=== PATIENT | female | born 1945 | race Caucasian/White ===

== ENCOUNTER 2017-07-14 10:35 | Inpatient (IN) | payer OTHER ==
[~2017-07-14] VITALS: Ht 154.9 cm; Wt 41.9 kg
[2017-07-14 12:11] LABS: BASOPHIL (%) 0.3 % (0-1); BASOPHIL COUNT 0.1 K/uL (0-0.1); EOSINOPHIL (%) 0 % (0-5); HEMATOCRIT 29.9 % (36.0-46.0); HEMOGLOBIN 9.9 G/DL (11.9-15.5); IMMATURE GRANULOCYTE (%) 2.4 % (0.0-0.7); LYMPHOCYTE (%) 4.9 % (15-42); LYMPHOCYTE COUNT 1.1 K/uL (1.0-2.8); MCH 26.9 PG (29.0-34.0); MCHC 33.1 G/DL (30.0-36.0); MCV 81.3 FL (83-99); MONOCYTE (%) 7.2 % (3-12); MONOCYTE COUNT 1.7 K/uL (0-0.8); NEUTROPHIL (%) 85.2 % (45-76); NEUTROPHIL COUNT 19.7 K/uL (1.8-6.4); PLATELET COUNT 446 K/uL (156-360); RBC DIS.WIDTH-CV 17.7 % (11.8-14.6); RBC DIS.WIDTH-SD 52.7 % (39-53); RED BLOOD COUNT 3.68 M/uL (3.80-5.20); WHITE BLOOD COUNT 23.1 K/uL (4.1-10.2)
[2017-07-14 12:19] LABS: ALBUMIN 3.1 g/dL (3.2-4.8); CHLORIDE 94 mEq/L (99-109); POTASSIUM 4.1 mEq/L (3.7-5.4); SODIUM 131 mEq/L (136-147)
[2017-07-14 12:21] LABS: GLUCOSE 123 mg/dL (70-99); TOTAL PROTEIN 6.2 g/dL (6.4-8.3)
[2017-07-14 12:23] LABS: TOTAL BILIRUBIN 0.5 mg/dL (0.0-1.0)
[2017-07-14 12:25] LABS: ALKALINE PHOSPHATASE 218 IU/L (3-129); CREATININE 0.7 mg/dL (0.6-1.3); GFR ESTIMATE (CALCULATED) > 59 mL/min/
[2017-07-14 12:26] LABS: UREA NITROGEN (BUN) 21 mg/dL (9-23)
[2017-07-14 12:27] LABS: AST (GOT) 18 IU/L (2-34)
[2017-07-14 12:28] LABS: ALT (GPT) 12 IU/L (3-49)
[2017-07-14 12:30] LABS: TROP-I INTERPRETATION NEGATIVE; TROPONIN-I 0.05 ng/mL (0.0-0.30)
[2017-07-14] MEDS ORDERED: BIAXIN500 MG PO (12:32)
[2017-07-14] MEDS ORDERED: HYDROCODON-ACE1 EAC9 PO (12:33)
[2017-07-14] MEDS ORDERED: GUAIFENESIN AC473 ML PO (12:33)
[2017-07-14 15:31] VITALS: BP 122/54
[2017-07-14 19:55] VITALS: BP 165/74
[2017-07-15 00:14] VITALS: BP 144/67
[2017-07-15 03:34] VITALS: BP 162/73
[2017-07-15 08:31] VITALS: BP 150/78
[2017-07-15 09:56] LABS: HEMATOCRIT 31.1 % (36.0-46.0); MCHC 32.2 G/DL (30.0-36.0); PLATELET COUNT 559 K/uL (156-360); RBC DIS.WIDTH-CV 18.1 % (11.8-14.6); RBC DIS.WIDTH-SD 52.8 % (39-53); RED BLOOD COUNT 3.84 M/uL (3.80-5.20); WHITE BLOOD COUNT 16.7 K/uL (4.1-10.2)
[2017-07-15 10:33] LABS: CHLORIDE 96 MEQ/L (99-109); CREATININE 0.4 MG/DL (0.6-1.3); GFR ESTIMATE (CALCULATED) > 59 mL/min/; GLUCOSE 142 mg/dL (70-99); POTASSIUM 4.5 MEQ/L (3.7-5.4); SODIUM 137 MEQ/L (136-147); UREA NITROGEN (BUN) 15 mg/dL (9-23)
[2017-07-15 12:15] VITALS: BP 158/72
[2017-07-15 16:54] VITALS: BP 129/58
[2017-07-15 20:57] VITALS: BP 170/74
[2017-07-16] VITALS (7 sets, daily range): BP systolic 117–159; BP diastolic 58–78
[2017-07-16 06:36] LABS: HEMATOCRIT 27.3 % (36.0-46.0); MCH 26.5 PG (29.0-34.0); MCV 80.5 FL (83-99); PLATELET COUNT 538 K/uL (156-360); RBC DIS.WIDTH-CV 17.8 % (11.8-14.6); RBC DIS.WIDTH-SD 52.1 % (39-53); RED BLOOD COUNT 3.39 M/uL (3.80-5.20); WHITE BLOOD COUNT 15.8 K/uL (4.1-10.2)
[2017-07-16 06:42] LABS: CHLORIDE 95 MEQ/L (99-109); CREATININE 0.4 MG/DL (0.6-1.3); GFR ESTIMATE (CALCULATED) > 59 mL/min/; GLUCOSE 150 mg/dL (70-99); POTASSIUM 4.1 MEQ/L (3.7-5.4); SODIUM 131 MEQ/L (136-147); UREA NITROGEN (BUN) 18 mg/dL (9-23)
[2017-07-17 07:32] LABS: HEMATOCRIT 29.2 % (36.0-46.0); HEMOGLOBIN 9.6 G/DL (11.9-15.5); MCH 26.5 PG (29.0-34.0); MCHC 32.9 G/DL (30.0-36.0); MCV 80.7 FL (83-99); PLATELET COUNT 631 K/uL (156-360); RBC DIS.WIDTH-CV 17.7 % (11.8-14.6); RBC DIS.WIDTH-SD 51.4 % (39-53); RED BLOOD COUNT 3.62 M/uL (3.80-5.20); WHITE BLOOD COUNT 13.7 K/uL (4.1-10.2)
[2017-07-17 08:09] VITALS: BP 142/60
[2017-07-17 11:38] VITALS: BP 142/66
[2017-07-17 15:55] VITALS: BP 152/64
[2017-07-17 20:24] VITALS: BP 140/70
[2017-07-18 00:43] VITALS: BP 151/87
[2017-07-18 04:07] VITALS: BP 153/72
[2017-07-18 07:24] VITALS: BP 183/84
[2017-07-18 09:54] LABS: HEMATOCRIT 32.2 % (36.0-46.0); HEMOGLOBIN 10.2 G/DL (11.9-15.5); MCH 25.8 PG (29.0-34.0); MCHC 31.7 G/DL (30.0-36.0); MCV 81.3 FL (83-99); NRBC (%) 0.1 /100 WBC (0-0); PLATELET COUNT 724 K/uL (156-360); RBC DIS.WIDTH-CV 17.9 % (11.8-14.6); RBC DIS.WIDTH-SD 52.1 % (39-53); RED BLOOD COUNT 3.96 M/uL (3.80-5.20); WHITE BLOOD COUNT 17.2 K/uL (4.1-10.2)
[2017-07-18 10:23] LABS: ALBUMIN 2.7 G/DL (3.2-4.8); ALKALINE PHOSPHATASE 136 IU/L (3-129); ALT (GPT) 23 IU/L (3-49); AST (GOT) 22 IU/L (2-34); CHLORIDE 95 MEQ/L (99-109); CREATININE 0.5 MG/DL (0.6-1.3); GFR ESTIMATE (CALCULATED) > 59 mL/min/; POTASSIUM 4.7 MEQ/L (3.7-5.4); SODIUM 133 MEQ/L (136-147); TOTAL BILIRUBIN 0.2 MG/DL (0.0-1.0); TOTAL PROTEIN 5.6 G/DL (6.4-8.3); UREA NITROGEN (BUN) 15 mg/dL (9-23)
[2017-07-18 10:25] LABS: GLUCOSE 107 mg/dL (70-99)
[2017-07-18 15:56] VITALS: BP 145/51
[2017-07-18 20:02] VITALS: BP 159/92
[2017-07-19 00:15] VITALS: BP 192/70
[2017-07-19 04:30] VITALS: BP 180/80
[2017-07-19 06:46] VITALS: BP 144/66
[2017-07-19 07:42] VITALS: BP 145/67
[2017-07-19 16:39] VITALS: BP 172/72
[2017-07-19 23:09] VITALS: BP 168/79
[2017-07-20 07:27] VITALS: BP 153/67
[2017-07-20 09:56] LABS: HEMATOCRIT 33.2 % (36.0-46.0); HEMOGLOBIN 10.7 G/DL (11.9-15.5); MCH 26.6 PG (29.0-34.0); MCHC 32.2 G/DL (30.0-36.0); MCV 82.6 FL (83-99); PLATELET COUNT 747 K/uL (156-360); RBC DIS.WIDTH-CV 18.6 % (11.8-14.6); RBC DIS.WIDTH-SD 54.1 % (39-53); RED BLOOD COUNT 4.02 M/uL (3.80-5.20); WHITE BLOOD COUNT 18.6 K/uL (4.1-10.2)
[2017-07-20 15:44] VITALS: BP 139/65
[2017-07-21 00:32] VITALS: BP 160/67
[2017-07-21 07:26] VITALS: BP 130/58
[2017-07-21 15:49] VITALS: BP 165/71
[2017-07-21 23:57] VITALS: BP 158/81
[2017-07-22 05:58] LABS: BASOPHIL (%) 0.2 % (0-1); EOSINOPHIL (%) 1.2 % (0-5); EOSINOPHIL COUNT 0.2 K/uL (0-0.3); HEMATOCRIT 31.9 % (36.0-46.0); HEMOGLOBIN 10.1 G/DL (11.9-15.5); IMMATURE GRANULOCYTE (%) 4.6 % (0.0-0.7); LYMPHOCYTE (%) 29.7 % (15-42); LYMPHOCYTE COUNT 3.8 K/uL (1.0-2.8); MCH 26.6 PG (29.0-34.0); MCHC 31.7 G/DL (30.0-36.0); MCV 84.2 FL (83-99); MONOCYTE (%) 9.5 % (3-12); MONOCYTE COUNT 1.2 K/uL (0-0.8); NEUTROPHIL (%) 54.8 % (45-76); NEUTROPHIL COUNT 7.1 K/uL (1.8-6.4); PLATELET COUNT 669 K/uL (156-360); RBC DIS.WIDTH-CV 19.4 % (11.8-14.6); RBC DIS.WIDTH-SD 57.7 % (39-53); RED BLOOD COUNT 3.79 M/uL (3.80-5.20); WHITE BLOOD COUNT 12.9 K/uL (4.1-10.2)
[2017-07-22 06:27] LABS: CHLORIDE 96 MEQ/L (99-109); CREATININE 0.6 MG/DL (0.6-1.3); GFR ESTIMATE (CALCULATED) > 59 mL/min/; GLUCOSE 85 mg/dL (70-99); POTASSIUM 5.1 MEQ/L (3.7-5.4); SODIUM 133 MEQ/L (136-147); UREA NITROGEN (BUN) 17 mg/dL (9-23)
[2017-07-22 08:39] VITALS: BP 166/68
[2017-07-22] MEDS ORDERED: FLUCONAZOLE200 MG PO (11:44)
== END 2017-07-22 14:47 | disposition home or self-care (01) | DRG 193 ==
LOC: EME 10:35 → 3EAST 12:24 → EDOF 12:24 → ENRESERV 12:48 → EDOF 13:40 → ENRESERV 13:46 → 3EAST 14:12
PROVIDERS: Emergency Medicine; Hospitalist; Internal Medicine; Physician Assistant; Student in an Organized Health Care Education/Training Program
DX: J13 Pneumonia due to Streptococcus pneumoniae (principal); R78.81 Bacteremia; J96.01 Acute respiratory failure with hypoxia; J44.0 Chronic obstructive pulmonary disease with (acute) lower respiratory infection; J44.1 Chronic obstructive pulmonary disease with (acute) exacerbation; B37.0 Candidal stomatitis; F17.200 Nicotine dependence, unspecified, uncomplicated; R64 Cachexia; Z68.1 Body mass index [BMI] 19.9 or less, adult; Z91.81 History of falling; Z78.9 Other specified health status; Z91.19 Patient's noncompliance with other medical treatment and regimen; Z91.14 Patient's other noncompliance with medication regimen; Z88.0 Allergy status to penicillin
CPT/HCPCS: 70450; 71046; 71275; 72170; 80048; 80053; 81003; 83605; 84484; 85025; 85027; 87040; 87070; 87077; 87181; 87205; 87449; 87502; 87801; 90732; 93005; 94640; 94640 76; 94760; 94799; 97530 GP; 99202; 99281; 99285; G0009; J0360; J0456; J0692; J0696; J1644; J2060; J2930; J7030; J7512

== ENCOUNTER 2017-07-30 14:15 | Emergency (ER) | payer OTHER ==
[~2017-07-30] VITALS: Ht 154.9 cm; Wt 40.7 kg
[~2017-07-30 14:15] MED LIST: BIAXIN500 MG PO; FLUCONAZOLE200 MG PO; GUAIFENESIN AC473 ML PO; HYDROCODON-ACE1 EAC9 PO
[2017-07-30 14:53] LABS: BASOPHIL (%) 0.6 % (0-1); EOSINOPHIL (%) 0.9 % (0-5); EOSINOPHIL COUNT 0.1 K/uL (0-0.3); HEMATOCRIT 31.4 % (36.0-46.0); HEMOGLOBIN 10.1 G/DL (11.9-15.5); IMMATURE GRANULOCYTE (%) 0.6 % (0.0-0.7); LYMPHOCYTE (%) 34.8 % (15-42); LYMPHOCYTE COUNT 2.2 K/uL (1.0-2.8); MCH 27.7 PG (29.0-34.0); MCHC 32.2 G/DL (30.0-36.0); MONOCYTE COUNT 0.7 K/uL (0-0.8); NEUTROPHIL (%) 52.1 % (45-76); NEUTROPHIL COUNT 3.3 K/uL (1.8-6.4); PLATELET COUNT 488 K/uL (156-360); RBC DIS.WIDTH-CV 19.9 % (11.8-14.6); RBC DIS.WIDTH-SD 62.4 % (39-53); RED BLOOD COUNT 3.65 M/uL (3.80-5.20); WHITE BLOOD COUNT 6.4 K/uL (4.1-10.2)
[2017-07-30 15:01] LABS: CHLORIDE 100 mEq/L (99-109); POTASSIUM 3.8 mEq/L (3.7-5.4); SODIUM 132 mEq/L (136-147)
[2017-07-30 15:02] LABS: GLUCOSE 100 mg/dL (70-99)
[2017-07-30 15:06] LABS: CREATININE 0.6 mg/dL (0.6-1.3); GFR ESTIMATE (CALCULATED) > 59 mL/min/
[2017-07-30 15:07] LABS: UREA NITROGEN (BUN) 9 mg/dL (9-23)
[2017-07-30 15:12] LABS: TROP-I INTERPRETATION NEGATIVE; TROPONIN-I < 0.01 ng/mL (0.0-0.30)
[2017-07-30 17:09] LABS: TROP-I INTERPRETATION NEGATIVE; TROPONIN-I 0.01 ng/mL (0.0-0.30)
[2017-07-30 17:32] VITALS: BP 174/88
== END 2017-07-30 18:13 | disposition home or self-care (01) ==
LOC: EME → EDBD 14:15 → EME 18:13
PROVIDERS: Emergency Medicine
DX: R07.89 Other chest pain (principal); E78.5 Hyperlipidemia, unspecified; J44.9 Chronic obstructive pulmonary disease, unspecified; K21.9 Gastro-esophageal reflux disease without esophagitis; Z87.891 Personal history of nicotine dependence
CPT/HCPCS: 71045; 80048; 84484; 85025; 93005; 99281; 99285